=== PATIENT | female | born 1995 | race Caucasian/White ===

== ENCOUNTER 2017-06-26 09:52 | Emergency (ER) | END 2017-06-26 11:35 | disposition home or self-care (01) ==

== ENCOUNTER 2017-11-19 21:59 | Emergency (ER) | END 2017-11-20 00:08 | disposition home or self-care (01) ==

== ENCOUNTER 2017-11-26 11:50 | Emergency (ER) | END 2017-11-26 14:25 | disposition home or self-care (01) ==

== ENCOUNTER 2017-12-27 21:00 | Emergency (ER) | END 2017-12-28 05:23 | disposition left against medical advice (07) ==

== ENCOUNTER 2018-12-16 00:18 | Emergency (ER) | payer BC ==
[~2018-12-16] VITALS: Ht 162.6 cm; Wt 84.1 kg
[~2018-12-16 00:18] MED LIST: ACET500C5 PO; AMOX500C2 PO; CEPH-443 PO; DICY10CA40 PO; FAMO-96 PO; FLUT9.9S NASAL; IBUP-1542 PO; NAPR-985 PO; ONDA4TAB14 PO; PSEU120T12 PO
[2018-12-16 00:56] VITALS: Ht 162.6 cm; Wt 84.1 kg
[2018-12-16] MEDS ORDERED: ONDANSETRON 4 MG INJ IV STA (02:44)
[2018-12-16] MEDS ORDERED: morphine 4 MG/ML VIAL IV STA (02:44)
[2018-12-16] MEDS ORDERED: SOD CHLORIDE 0.9% 1,000 ML IV ONE (03:00)
[2018-12-16] MEDS ORDERED: HYDROmorphONE 2 MG/ML SYG IV STA (04:06)
[2018-12-16 04:37] VITALS: BP 116/72; PULSE 61; RESP 20
== END 2018-12-16 04:49 | disposition home or self-care (01) ==
LOC: FTE 00:18
DX: R10.11 Right upper quadrant pain (principal); R11.2 Nausea with vomiting, unspecified
CPT/HCPCS: 71046; 76705; 80053; 81001; 81025; 82150; 83690; 85025; 85610; 85730; 87086; 96374; 96375; 99285; J1170; J2270; J2405; J7030